=== PATIENT | female | born 1990 | race Caucasian/White ===

== ENCOUNTER 2016-10-21 18:53 | Inpatient (IN) | payer OTHER ==
[2016-10-21 19:47] LABS: ABSOLUTE BASOPHILS # (AUTO) 0.1 10^3/uL (0.0-0.2); ABSOLUTE EOSINOPHILS # (AUTO) 0.1 10^3/uL (0.0-0.6); ABSOLUTE LYMPHOCYTES (AUTO) 1.8 10^3/uL (0.5-4.7); ABSOLUTE MONOCYTES (AUTO) 0.6 10^3/uL (0.1-1.4); ABSOLUTE NEUT (AUTO) 6.9 10^3/uL (1.7-8.2); BASOPHILS % (AUTO) 0.7 % (0-2); EOSINOPHILS % (AUTO) 0.6 % (0-6); HEMATOCRIT 32.9 % (36.0-47.0); HEMOGLOBIN 10.9 g/dL (12.0-15.5); HGB HCT DIFFERENCE -0.2; LYMPHOCYTES % (AUTO) 19.1 % (13-45); MEAN CORPUSCULAR HEMOGLOBIN 24.3 pg (27.0-33.4); MEAN CORPUSCULAR HGB CONC 33.1 g/dL (32.0-36.0); MEAN CORPUSCULAR VOLUME 73 fl (80-97); MONOCYTES % (AUTO) 6.1 % (3-13); RED BLOOD COUNT 4.48 10^6/uL (3.72-5.28); SEGMENTED NEUTROPHILS % (AUTO) 73.5 % (42-78); WHITE BLOOD COUNT 9.4 10^3/uL (4.0-10.5)
[2016-10-21] MEDS ORDERED: DINOPROSTONE 10 MG VAGINAL INSERT.SR PV PRN (20:02)
[2016-10-21] MEDS ORDERED: RINGERS SOLUTION,LACTATED 1,000 ML IV PRN (20:02)
[2016-10-21] MEDS ORDERED: DINOPROSTONE 10 MG VAGINAL INSERT.SR ONE (20:02)
[2016-10-21 20:38] LABS: APPEARANCE,URINE CLOUDY; BILIRUBIN,URINE NEGATIVE (NEGATIVE); GLUCOSE, URINE NEGATIVE (NEGATIVE); KETONES,URINE NEGATIVE (NEGATIVE); LEUKOCYTE ESTERASE,URINE MODERATE (NEGATIVE); NITRITE,URINE NEGATIVE (NEGATIVE); PROTEIN,URINE NEGATIVE (NEGATIVE); UROBILINOGEN,URINE NEGATIVE mg/dL (<2.0)
[2016-10-21 20:53] LABS: URINE BARBITURATES SCREEN NEGATIVE; URINE METHADONE SCREEN NEGATIVE; URINE OPIATES LOW NEGATIVE; URINE PHENCYCLIDINE SCREEN NEGATIVE
[2016-10-21] MEDS ORDERED: ZOLPIDEM TARTRATE 5 MG TABLET PO ONE (23:22)
[2016-10-21] MEDS ORDERED: ZOLPIDEM TARTRATE 5 MG TABLET ONE (23:27)
[2016-10-22] MEDS ORDERED: PENICILLIN G-K 5 MILLION UNIT VIAL ONE ×2 (08:54→12:55)
[2016-10-22] MEDS ORDERED: OXYTOCIN/NORMAL SALINE 20 UNIT/1,000 ML RTUINJ ONE ×2 (09:00→10:11)
[2016-10-22] MEDS ORDERED: EPHEDRINE SULFATE INJ 50 MG/1 ML AMPULE ONE (10:09)
[2016-10-22] MEDS ORDERED: FENTANYL/BUPIVACAINE/NS/PF 200 MCG/100 ML RTUINJ EPI ONE (10:10)
[2016-10-22] MEDS ORDERED: BUPIVACAINE HCL 0.25 % INJ/PF (2.5 MG/1 ML) 30 ML VIAL ONE (10:10)
[2016-10-22] MEDS ORDERED: LIDOCAINE 1% INJ-PF (10 MG/ML) 30 ML SDV ONE (10:11)
[2016-10-22] MEDS ORDERED: MISOPROSTOL 0.2 MG TABLET ONE (10:11)
[2016-10-22] MEDS ORDERED: FENTANYL CITRATE INJ/PF 100 MCG/2 ML AMPUL ONE (10:19)
--- NOTE | 2016-10-22 10:25 | L&D Progress Notes ---
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 for low TSH- normal abdomen nontender FHTs 120s +accelerations start pitocin sve 480/-1 AROM moderate meconium head well applied gbs prophylaxis plan of care reviewed with pt and mother VAGINAL EXAM Dilatation: 4 Dilatation: 1 Effacement: 80 Effacement: 25 Station: -1 Station: -3 MEMBRANES Membranes: Ruptured Membranes: Intact Amniotic Fluid Color: Meconium, Heavy FETUS A FHR - Baseline: 130 Monitoring: External US Variability: Moderate 6-25bpm Accelerations: 15X15 Decelerations: None FHR Category: Category I : 39.5 Estimated Weight (gm): 3766 Presentation: Vertex SIGNATURE SIGNATURE: [id number] Assignment: Makenzie Mccormick MD Signature: with User ID: [email or web address] : with User ID: [email or web address]
[2016-10-22] MEDS ORDERED: LANSOPRAZOLE 30 MG TAB.RAP.DR ONE (14:00)
[2016-10-22] MEDS ORDERED: DIPH/PERTUSS(ACELL)/TETANUS VAC/PF 0.5 ML SYR (>=10YO) IM PRN (17:06)
[2016-10-22] MEDS ORDERED: BENZOCAINE/MENTHOL AEROSOL SPRAY 56 ML TOP PRN (17:06)
[2016-10-22] MEDS ORDERED: MEASLES,MUMPS&RUBELLA VACC/PF 0.5 ML VIAL SUBCUT PRN (17:06)
[2016-10-22] MEDS ORDERED: ACETAMINOPHEN WITH CODEINE #3 TABLET PO PRN ×2 (17:06)
[2016-10-22] MEDS ORDERED: DIBUCAINE 1% OINTMENT 28 GM TP PRN (17:06)
[2016-10-22] MEDS ORDERED: ZOLPIDEM TARTRATE 5 MG TABLET PO PRN (17:06)
--- NOTE | 2016-10-22 18:27 | Admission Physical ---
Datetime Report Generated by CPN: 10/22/2016 18:26 CURRENT ADMISSION Chief Complaint: Scheduled Induction of Labor Indication for Induction: Polyhydramnios Admit Plan: Admit to Unit; Initiate Labor Induction Protocol ALLERGIES Medication Allergies: No Medication Allergies: No Known Allergies (10/21/2016) Latex: No Latex Allergies OBSTETRICAL HISTORY EDC: 10/24/2016 00:00 : 1 Para: 0 Term: 0 : 0 SAB: 0 IAB: 0 Ectopic: 0 Livin Cesareans: 0 VBACs: 0 Multiple Births: 0 Gestational Diabetes: No Rh Sensitization: No Incompetent Cervix: No LAURYN: No Infertility: No ART Treatment: No Uterine Anomaly: No IUGR: No Hx Previous C/S: No Macrosomia: No Hx Loss/Stillborn: No PIH: No Hx : No Placenta Previa/Abruption: No Depression/PP Depression: No PTL/PROM: No Post Hemorrhage: No Current Procedures: Ultrasound; NST Obstetrical History Comments: G1 - Current - Poly SEE RECORDS Alcohol: No Marijuana : No Cocaine: No Other Illicit Drugs: No Cigarettes: Never Smoker. 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 Surgery: No Heart Disease: No Hosp/Surgery: No Autoimmune Disorder: No Anesthetic Complications: No Kidney Disease: No Abnormal Pap Smear: No Neuro/Epilepsy: No Psychiatric Disorders: No Other Medical Diseases: No Hepatitis/Liver Disease: No Significant Family History: No Varicosities/Phlebitis: No Trauma/Violence : No Thyroid Dysfunction: No INFECTIOUS HISTORY Gonorrhea: No Genital Herpes: No Chlamydia: No Tuberculosis: No Syphilis: No Hepatitis: No HIV/AIDS Exposure: No Rash or Viral Illness: No HPV: No PHYSICAL EXAM General: Normal HEENT: Normal Neurologic: Normal Thyroid: Normal Heart: Normal Lungs: Normal Breast: Deferred Back: Normal Abdomen: Normal Genitourinary Exam: Normal Extremities: Normal DTRs: Normal Pelvic Type: Adequate Vital Signs: Reviewed VAGINAL EXAM Dilatation: 4 Dilatation: 1 Effacement: 80 Effacement: 25 Station: -1 Station: -3 MEMBRANES Membranes: Ruptured Membranes: Intact Amniotic Fluid Color: Meconium, Heavy FETUS A EGA: 39.4 Monitoring: External US FHR- Baseline: 125 Variability: Moderate 6-25bpm (Annotations: Data stored by N on behalf of user) Accelerations: 15X15 Decelerations: None FHR Category: Category I Estimated Weight (gm): 3766 Presentation: Vertex Admit Comment: 26yo at 39+4ega presents for scheduled IOL for polyhydramnios. No GDM. GBS positive - PCN once cervidil is out. Cervix is unfavorable - will start with cervidil tonight. Reviewed other methods of induction of labor including pitocin, cooks catheter. Pelvis adequate for OSCAR. EFW on 10/13 was 8#5oz. Pelvis unproven. PLANS FOR LABOR AND DELIVERY Labor and Delivery: None Pain Management: Epidural Feeding Preference: Breast Benefit of Breast Feed Discussed: Yes Circumcision: N/A INFORMED CONSENT Informed Consent Obtained: Vaginal Delivery; Induction of Labor; Risks, Benefits and Alternatives Discussed Informed Consent Obtained: Vaginal Delivery; Induction of Labor; Risks, Benefits and Alternatives Discussed Signature: with User ID: [email or web address]
[2016-10-22] MEDS: FERROUS SULFATE 325 MG TABLET PO SCH (18:41)
[2016-10-22] MEDS: DOCUSATE SODIUM 100 MG CAPSULE PO SCH (18:41)
[2016-10-22] MEDS: IBUPROFEN 800 MG TABLET PO SCH (22:28)
[2016-10-23] MEDS: IBUPROFEN 800 MG TABLET PO SCH ×3 (06:41→21:09)
[2016-10-23 07:05] LABS: HEMATOCRIT 27.6 % (36.0-47.0); HEMOGLOBIN 8.9 g/dL (12.0-15.5); HGB HCT DIFFERENCE -0.9; MEAN CORPUSCULAR HEMOGLOBIN 24.3 pg (27.0-33.4); MEAN CORPUSCULAR HGB CONC 32.3 g/dL (32.0-36.0); MEAN CORPUSCULAR VOLUME 75 fl (80-97); RED BLOOD COUNT 3.67 10^6/uL (3.72-5.28); RED CELL DISTRIBUTION WIDTH 19.9 % (11.5-14.0); WHITE BLOOD COUNT 9.6 10^3/uL (4.0-10.5)
--- NOTE | 2016-10-23 09:35 | PDOC PROGRESS REPORT ---
Subjective-OB Subjective: Post Delivery Day: 26 year old. Denies any needs at this time Doing well, family at BS, G-mother holding baby, breast feeding, voiding, eating well Physical Exam (OB) Vital Signs: Temp Pulse Resp BP Pulse Ox 97.7 F 77 16 112/72 100 10/23/16 07:28 10/23/16 07:28 10/23/16 07:28 10/23/16 07:28 10/23/16 07:28 Intake & Output 10/22/16 10/23/16 10/24/16 06:59 06:59 06:59 Weight 82.95 kg - PIH/Pre-Eclampsia DTR's: 1 + Clonus: Negative Headache: Absent Epigastric Pain: No Visual Changes: No - Lochia Lochia Amount: Small 10-25 ml Lochia Color: Rubra/Red - Abdomen Description: Soft Hernia Present: No Fundal Description: Firm, Midline Fundal Height: u/u - u/2 Objective-Diagnostic Laboratory: 10/23/16 06:52 10/23/16 06:52 WBC 9.6 RBC 3.67 L Hgb 8.9 L Hct 27.6 L MCV 75 L MCH 24.3 L MCHC 32.3 RDW 19.9 H Plt Count 118 L Assessment and Plan(PN) - Assessment and Plan (1) Polyhydramnios affecting in third trimester Is this a current diagnosis for this admission?: Yes (2) Vaginal delivery Is this a current diagnosis for this admission?: Yes - Time Spent with Patient Time with patient: Less than 15 minutes Medications reviewed and adjusted accordingly: Yes - Disposition Anticipated Discharge: Home Within: within 24 hours
[2016-10-23] MEDS: PRENATAL VITAMIN W-O CA NO5/FE FUMARATE/FA CAPSULE PO SCH (10:10)
[2016-10-23] MEDS: SENNOSIDES/DOCUSATE 8.6-50 MG 1 EACH TABLET PO SCH (10:10)
[2016-10-23] MEDS: FERROUS SULFATE 325 MG TABLET PO SCH ×2 (10:10→17:34)
[2016-10-23] MEDS: DOCUSATE SODIUM 100 MG CAPSULE PO SCH ×2 (10:11→17:34)
[2016-10-24] MEDS: IBUPROFEN 800 MG TABLET PO SCH (05:56)
[2016-10-24 08:28] VITALS: BP 115/68
--- NOTE | 2016-10-24 10:00 | PDOC DISCHARGE SUMMARY ---
Final Diagnosis Discharge Date: 10/24/16 - Final Diagnosis (1) Acute blood loss anemia Is this a current diagnosis for this admission?: Yes (2) Polyhydramnios affecting in third trimester Is this a current diagnosis for this admission?: Yes (3) Vaginal delivery Is this a current diagnosis for this admission?: Yes Discharge Data - Discharge Medication Home Medications: Prenat Vit Comb.10/Iron/FA/Dha [Vitafol-Ob+Dha Combo Pack] 1 each PO DAILY 10/21 Docusate Sodium [Colace 100 mg Capsule] 100 mg PO BID #60 capsule 10/24/16 Ferrous Sulfate [Feosol 325 mg Tablet] 325 mg PO BID #60 tablet 10/24/16 Ibuprofen [Motrin 800 mg Tablet] 800 mg PO Q8 #60 tablet 10/24/16 Gestational Age: 39.4 Reason(s) for Admission: Induction of Labor - polyhydramnios Procedures: NST Intrapartum Procedure(s): Spontaneous Vaginal Delivery Complication(s): Laceration-Vaginal Laceration-Degree: 2nd - [place] Data Baby 1 Female at 1 minute: 9 at 5 minutes: 9 Weight: 3.289 kg Home with Mother: Yes Complications: No - Diagnosis Test Laboratory: Temp Pulse Resp BP Pulse Ox 98.2 F 77 16 115/68 100 10/24/16 09:53 10/24/16 09:53 10/24/16 09:53 10/24/16 08:24 10/24/16 09:53 10/21/16 10/21/16 10/23/16 19:24 19:35 06:52 RBC 4.48 3.67 L Hgb 10.9 L 8.9 L Hct 32.9 L 27.6 L Urine Opiates Screen NEGATIVE - Discharge information/Instructions Discharge Activity: Activity As Tolerated, Pelvic Rest, No tub bath Discharge Diet: Regular Disposition: HOME, SELF-CARE Follow up with: [facility] in: 4, Weeks
[2016-10-24] MEDS: DOCUSATE SODIUM 100 MG CAPSULE PO SCH (11:40)
[2016-10-24] MEDS: SENNOSIDES/DOCUSATE 8.6-50 MG 1 EACH TABLET PO SCH (11:40)
[2016-10-24] MEDS: FERROUS SULFATE 325 MG TABLET PO SCH (11:40)
[2016-10-24] MEDS: PRENATAL VITAMIN W-O CA NO5/FE FUMARATE/FA CAPSULE PO SCH (11:40)
--- NOTE | 2016-11-02 11:22 | Delivery Summary ---
Del Sum A-C Datetime Report Generated by CPN: 11/02/2016 11:21 DELIVERY PERSONNEL DELIVERY PERSONNEL: [id number] Delivery Doctor:: Neal Gaxiola CNM Labor and Delivery Nurse:: Jose Juan Abdul RNcitrus picker Nurse:: ISAÍAS Herrera Stone Circular Sawyer:: Heidi Stovall RN Electrical Contacts Adjuster/MANAGER SUPPLY: Vinita Starkey CNA II Electrical Contacts Adjuster/MANAGER SUPPLY: Renetta Anthony, ST MATERNAL INFORMATION Delivery Anesthesia: Epidural Medications After Delivery: Pitocin Bolus-Please Comment; Pitocin Drip 20 Units/1000ml NSS Estimated Blood Loss (ml): 400 Maternal Complications: None Provider Comments: delivery of viable female, apgars 9/9 OA restituted to HEIDI right compound hand bulb suctioned on perinuem moderate meconium infant to abdomen tactile stimulation elicits spont cry cord clamped cut by FOB cord blood obtained 3VC placenta delivered intact placenta sethi EBL 400 cc 2nd degree vaginal laceration repaired hemostasis achieved FF@u-1 pt bonding well with LABOR SUMMARY EDC: 10/24/2016 00:00 No. Babies in Womb: 1 Attempted: No Labor Anesthesia: Epidural LABOR INFORMATION Reason for Induction: Polyhydramnios Onset of Labor: 10/22/2016 09:16 Complete Dilatation: 10/22/2016 15:07 Cervical Ripening Agents: Cervidil Oxytocin: Augmentation Group B Beta Strep: positive Antibiotics # of Doses: 2 Antibiotics Time of Last Dose: Name of Antibiotic Given: PCN Steroids Given: None Reason Steroids Not Administered: Not Applicable MEMBRANES Membranes Rupture Method: Artificial Membranes Rupture Method: Artificial Rupture of Membranes: 10/22/2016 09:14 Rupture of Membranes: 10/22/2016 09:14 Length of Rupture (hr): 6.22 Length of Rupture (hr): 6. Amniotic Fluid Color: Moderate Meconium Amniotic Fluid Color: Moderate Meconium Amniotic Fluid Amount: Large Amniotic Fluid Amount: Large STAGES OF LABOR Stage 1 hr: 5 Stage 1 min: 51 Stage 2 hr: 0 Stage 2 min: 20 Stage 3 hr: 0 Stage 3 min: 2 Total Time in Labor hr: 6 Total Time in Labor min: 13 VAGINAL DELIVERY Laceration Extension: Second Degree Laceration Type: Vaginal CSECTION DELIVERY Primary Indication: N/A Secondary Indication: N/A CSection Incidence: N/A Labor: N/A Elective: N/A CSection Incision: N/A BABY A INFORMATION Delivery Date/Time: 10/22/2016 15:27 Method of Delivery: Vaginal Born in Route : No : N/A Forceps: N/A Vacuum Extraction: N/A Shoulder Dystocia : No PRESENTATION/POSITION BABY A Presentation: Compound Presentation: Cephalic Cephalic Presentation: Vertex Vertex Position: Left Occipital Anterior Breech Presentation: N/A PLACENTA INFORMATION BABY A Placenta Delivery Time : 10/22/2016 15:29 Placenta Method of Delivery: Spontaneous Placenta Status: Delivered SCORES BABY A Heart Rate 1 min: >100 bpm Resp Effort 1 min: Good Cry Reflex Irritability 1 min: Cough or Sneeze or Pulls Away Muscle Tone 1 min: Active Motion Color 1 min: Body [place], Extremities Blue Resuscitation Effort 1 min: Tactile Stimulation SCORE 1 MIN: 9 Heart Rate 5 min: >100 bpm Resp Effort 5 min: Good Cry Reflex Irritability 5 min: Cough or Sneeze or Pulls Away Muscle Tone 5 min: Active Motion Color 5 min: Body [place], Extremities Blue Resuscitation Effort 5 min: N/A SCORE 5 MIN: 9 INFANT INFORMATION BABY A Gestational Age at Delivery: 39.5 Gestational Status: Full Term- 39- 40.6 Weeks Outcome : Liveborn Condition : Stable Infant Sex: Female IDENTIFICATION BABY A Verification Date/Time: 10/22/2016 16:36 ID Band Number: [id number] Mother's Name Verified: Yes RN Verifying Infant: K Alistair RNC/C Abdul RN CORD INFORMATION BABY A No. Cord Vessels: 3 Nuchal Cord : N/A Cord Blood Taken: Yes-For Storage (Mom's Blood type +) Suction: None; Mouth ASSESSMENT BABY A Complications: None Physical Findings at Delivery: Molding of the Head Skin to Skin: Yes Skin to Skin: Yes Skin to Skin: Yes Shaker Out/ALS Called : No Transferred To: Remains with Mother BABY B INFORMATION : N/A SIGNATURES Assignment: Makenzie Mccormick MD Signature: with User ID: [email or web address] : with User ID: [email or web address]
== END 2016-10-24 11:53 | disposition home or self-care (01) | DRG 775 ==
LOC: LR 18:53 → 2S 10-22 18:26
PROVIDERS: ADMIT Student in an Organized Health Care Education/Training Program; ATTEND Student in an Organized Health Care Education/Training Program
PROC: 4A1HXCZ Monitoring of Products of Conception, Cardiac Rate, External Approach (ICD-10-PCS; 2016-10-21)
PROC: 10E0XZZ Delivery of Products of Conception, External Approach (ICD-10-PCS; principal; 2016-10-22)
PROC: 0KQM0ZZ Repair Perineum Muscle, Open Approach (ICD-10-PCS; 2016-10-22)
PROC: 10907ZC Drainage of Amniotic Fluid, Therapeutic from Products of Conception, Via Natural or Artificial Opening (ICD-10-PCS; 2016-10-22)
DX: O40.3XX0 Polyhydramnios, third trimester, not applicable or unspecified (principal); D62 Acute posthemorrhagic anemia; O99.02 Anemia complicating childbirth; O70.1 Second degree perineal laceration during delivery; O77.0 Labor and delivery complicated by meconium in amniotic fluid; O99.824 Streptococcus B carrier state complicating childbirth; O32.6XX0 Maternal care for compound presentation, not applicable or unspecified; Z3A.39 39 weeks gestation of pregnancy; Z37.0 Single live birth
CPT/HCPCS: 36415; 80307; 81005; 85025; 85027; 86592; 86850; 86900; 86901; 88307; J2540; J2590; J3010; J3490